=== PATIENT | female | born 1990 | race Hispanic/Latino ===

== ENCOUNTER → 2016-10-06 | Outpatient (CLI) | payer SELFPAY | END | disposition home or self-care (01) | LOC: LAB.O 14:19 | PROVIDERS: ATTEND Nurse Practitioner Family | DX: E66.9 Obesity, unspecified (principal); Z68.39 Body mass index [BMI] 39.0-39.9, adult ==

== ENCOUNTER 2016-12-06 01:49 | Emergency (ER) | payer SELFPAY ==
--- NOTE | 2016-12-06 02:04 | ED.PDOC ---
History of Present Illness - General Chief Complaint: General Stated Complaint: right arm numb Time Seen by Provider: 12/06/16 02:01 Source: patient, RN notes reviewed, Vital Signs reviewed Exam Limitations: no limitations - History of Present Illness Initial Comments: Patient woke up with her whole R arm numb, felt like it was asleep. Now she is having a burning pain in her R neck and shoulder. Feels like her arm is weak. Also having some nausea. She had a similar episode about 7 years ago with numbness that started in her R foot, spread all over here body and then she developed a migraine. Currently no HANKS. Allergies/Adverse Reactions: Allergies NO KNOWN ALLERGY Allergy (Verified 12/06/16 01:59) Home Medications: Ambulatory Orders Phentermine HCl 37.5 mg PO DAILY 12/06/16 Review of Systems - Review of Systems Constitutional: States: no symptoms reported EENTM: States: no symptoms reported Respiratory: States: no symptoms reported Cardiology: States: no symptoms reported Gastrointestinal/Abdominal: States: nausea. Denies: abdominal pain Musculoskeletal: States: no symptoms reported Skin: States: no symptoms reported Neurological: States: see HPI, numbness - Right arm, paresthesia - Burning R neck and shoulder, weakness - Right arm Past Medical History (General) - Patient Medical History Hx Seizures: No Hx Stroke: No Hx Dementia: No Hx Asthma: No Hx of COPD: No Hx Cardiac Disorders: No Hx Congestive Heart Failure: No Hx Pacemaker: No Hx Hypertension: No Hx Thyroid Disease: No Hx Diabetes: No Hx Gastroesophageal Reflux: Yes Hx Renal Disease: No Hx Cancer: No Hx of HIV: No Hx Hepatitis C: No Hx MRSA: No Surgical History: no surgical history - Vaccination History Hx Tetanus, Diphtheria Vaccination: Yes Hx Influenza Vaccination: Yes Hx Pneumococcal Vaccination: No Immunizations Up to Date: Yes - Social History Hx Tobacco Use: No Hx Chewing Tobacco Use: No Hx Alcohol Use: No Hx Substance Use: No Hx Substance Use Treatment: No Hx Depression: No Feels Threatened In Home Enviroment: No Feels Threatened In a Relationship: No Hx Physical Abuse: No Hx Emotional Abuse: No Hx Suspected Abuse: No - Female History Patient is a Female of Child Bearing Age (10 -59 yrs old): Yes Hx Last Menstrual Period: 10/13/14 Patient : No Expected Date of Delivery:: 07/19/15 Family Medical History - Family History Mother Name: Alexa Age (years): 45 Living Status: Still Living Hx Family Congestive Heart Failure: Yes Hx Family Hypertension: Yes Hx Cardiac Disease: Yes Hx Family Diabetes: Yes Grandparents Name: grandma Living Status: Age at (years of age): 62 Cause of : cirrosis of liver Hx Family Congestive Heart Failure: Yes - grandma Hx Family Hypertension: Yes - grandma Hx Family Diabetes: Yes Hx Family Cancer: Yes - grandpa Hx Family;Other: Grandpa from lung cancer at age 74. Physical Exam - Physical Exam General Appearance: Alert, Anxious, Comfortable, No apparent distress, Well Developed, Well Groomed, Well Hydrated, Well Nourished Neck: non-tender, full range of motion, supple, normal inspection Respiratory: no respiratory distress Peripheral Pulses: radial,right: 2+ Back Exam: normal inspection Extremity: normal range of motion, non-tender, normal inspection, no pedal edema , normal capillary refill Neurologic: alert, normal mood/affect, oriented x 3, sensory deficit - decreased sensation to light touch over whole arm - strength is 5/5 bilateral upper extremities. Skin Exam: normal color, warm/dry Progress - Progress Progress: 12/06/16 02:58 C-spine X-ray is normal. Pt still c/o R arm weakness but clinically she does not have any weakness on her RUE. 12/06/16 03:34 Patient continues to have numbness in her R arm but no new symptoms. Will d/c home with instructions to follow up with her PCP for possible MRI of her neck. - EKG/XRAY/CT XRAY: c-spine - No acute findings her Radiology Departure - Departure Clinical Impression: Cervical radiculopathy, Paresthesia of right upper extremity Time of Disposition: 03:36 Disposition: Discharge to Home or Self Care Condition: Good Departure Forms: ED Discharge - Pt. Copy, Patient Portal Self Enrollment Instructions: DI for Cervical Radiculopathy Diet: resume usual diet Activity: increase activity as tolerated Referrals: Reilly Cox MD [Primary Care Provider] - 1-5 Days Home Medications: Ambulatory Orders Phentermine HCl 37.5 mg PO DAILY 12/06/16 Additional Instructions: Stop Phentermine
[2016-12-06] MEDS ORDERED: ONDANSETRON ODT 8 MG TAB SL ONE (02:05)
[2016-12-06] MEDS ORDERED: ONDANSETRON ODT 8 MG TAB ONE (02:06)
--- NOTE | 2016-12-06 02:37 | RAD ---
EXAM: Three view(s) of the cervical spine. INDICATION: Pain, cervical spine. COMPARISON: None. FINDINGS: Technical: On the lateral view, the craniocervical junction to the C6-C7 level is visualized. Alignment: Intact. Fracture: No acute fracture or subluxation. Odontoid process: Intact. Prevertebral soft tissues: Within normal limits. IMPRESSION: 1. No acute fracture. Electronically signed by: Francesco Ennis MD 12/06/2016 2:37 AM CDT
[2016-12-06 03:42] VITALS: BP 105/64; TEMP 96; O2SAT 98
== END 2016-12-06 03:43 | disposition home or self-care (01) ==
LOC: ER 01:49
DX: M54.12 Radiculopathy, cervical region (principal); R20.0 Anesthesia of skin; K21.9 Gastro-esophageal reflux disease without esophagitis